=== PATIENT | female | born 1990 | race Two or more races ===

== ENCOUNTER → 2021-12-02 | Outpatient (CLI) | payer BC ==
[2021-12-02 07:14] LABS: Basophils # (auto) 0.1 10 ^3/uL (0-0.2); Hemoglobin 13.3 g/dL (12.2-16.2); Nucleated Red Blood Cells % 0.1 %
[2021-12-02 07:15] LABS: Basophils % (auto) 1.3 % (0.0-2.0); Eosinophils # (auto) 0.1 10 ^3/uL (0-0.8); Eosinophils % (auto) 2.1 % (0.0-7.0); Hematocrit 41.1 % (36.0-46.0); Lymphocytes % (auto) 32.6 % (10.0-50.0); Mean Corpuscular Hgb Conc. 32.3 g/dL (32.0-36.0); Mean Corpuscular Volume 80.5 fL (80.0-100.0); Monocytes # (auto) 0.5 10 ^3/uL (0-1.3); Monocytes % (auto) 7.6 % (0.0-12.0); Neutrophils # (auto) 3.4 10 ^3/uL (1.6-8.6); Neutrophils % (auto) 56.4 % (37.0-80.0); Red Cell Distribution Width 13.6 % (11.8-14.3); White Blood Cell 6.1 10^3/uL (4.4-10.8)
[2021-12-02 07:23] LABS: Urine Bacteria FEW /hpf (None Seen); Urine Blood 1+ /uL (Negative); Urine Mucus FEW (None Seen); Urine Specific Gravity 1.017 (1.001-1.035); Urine WBC 16 /hpf (0 - 5)
[2021-12-02 08:55] LABS: Potassium 4.5 mmol/L (3.5-5.1)
[2021-12-02 09:06] LABS: Albumin 3.6 g/dL (3.4-5.0); BUN/Creatinine Ratio 11.4; Bilirubin, Total 0.3 mg/dL (0.2-1.0); Total Protein 7.2 g/dL (6.4-8.2)
[2021-12-02 09:52] LABS: Free T4 (Free Thyroxine) 1.1 ng/dL (0.89-1.76)
== END | disposition home or self-care (01) ==
LOC: LAB 06:50
PROVIDERS: ATTEND Internal Medicine
DX: E03.9 Hypothyroidism, unspecified (principal); L68.0 Hirsutism
CPT/HCPCS: 36415; 80053; 80061; 81001; 83001; 83002; 84403; 84439; 84443; 85025; 85652